=== PATIENT | male | born 1970 ===

== ENCOUNTER 2017-12-08 12:04 | Emergency (ER) | payer MEDICAID ==
[2017-12-08 12:05] VITALS: BMI 20.5
[2017-12-08 12:25] VITALS: PULSE 80
[2017-12-08] MEDS ORDERED: Lidocaine 1% Inj (20ml) IJ ONE (14:37)
[2017-12-08] MEDS ORDERED: Piperacillin/Tazobact 4.5 GM in Sodium Chloride 0.9% 100 ML IVPB STA (14:42)
[2017-12-08] MEDS ORDERED: Piperacillin/Tazobact 3.375 gm Inj IVPB ONE (14:51)
[2017-12-08] MEDS ORDERED: Lidocaine 2% Inj (20ml) ONE (14:52)
--- NOTE | 2017-12-08 14:55 | ED PDOC ---
HPI: Skin/Bite Injury Time Seen by Provider: 12/08/17 12:51 Chief Complaint (Nursing): Wound Check Chief Complaint (Provider): Abscess History Per: Patient History/Exam Limitations: no limitations Onset/Duration Of Symptoms: Days (x3 to 4) Current Symptoms Are (Timing): Still Present Location Of Injury: Left: Buttock (lower) Quality Of Symptoms: Painful, Swollen Additional Complaint(s): Dhaval Hoyt is a 47 year old male, with a past medical history of HIV with normal T-cell count on HAART, who presents to the emergency department with recommendation from PMD for evaluation of pain and swelling to left lower buttocks ongoing for x3 to 4 days. Patient states he squeezed it yesterday and expelled some of the fluid. Patient further states it does hurt to sit on that side. He denies any fever, chills or history of prior abscesses. No further medical complaints. PMD: Bjorn Fernandez Past Medical History Reviewed: Historical Data, Nursing Documentation Vital Signs: Last Vital Signs Temp 98.1 F 12/08/17 12:21 Pulse 80 12/08/17 12:21 Resp 19 12/08/17 12:21 BP 130/79 12/08/17 12:21 Pulse Ox 96 12/08/17 15:18 - Medical History PMH: HIV, Sexually Transmitted Disease (syphillis) - Surgical History Surgical History: No Surg Hx - Family History Family History: States: Unknown Family Hx - Social History Current smoker - smoking cessation education provided: No Alcohol: None Drugs: Denies - Immunization History Hx Tetanus Toxoid Vaccination: No Hx Influenza Vaccination: No Hx Pneumococcal Vaccination: No - Home Medications Home Medications: Ambulatory Orders Medication Instructions Recorded Elviteg/Juliane/Emtric/Tenofo Dis 1 tab PO DAILY 01/07/14 [Stribild] Ciprofloxacin HCl [Ciprofloxacin] 500 mg PO Q12 #14 tab 10/10/15 Dicyclomine [Bentyl] 20 mg PO Q6 PRN #12 tab 10/10/15 Famotidine [Pepcid] 40 mg PO DAILY #10 tab 10/10/15 Ondansetron [Zofran] 4 mg PO Q8H #8 tab 10/10/15 metroNIDAZOLE [Flagyl] 500 mg PO Q8 #30 tab 10/10/15 oxyCODONE/Acetaminophen [Percocet 1 ea PO Q6 PRN #10 tab 10/10/15 5/325 mg Tab] Clindamycin [Cleocin] 300 mg PO TID #21 cap 12/08/17 Ibuprofen [Motrin Tab] 600 mg PO Q6 PRN #15 tab 12/08/17 traMADol [Ultram] 50 mg PO TID PRN #12 tab 12/08/17 - Allergies Allergies/Adverse Reactions: Allergies Allergy/AdvReac Type Severity Reaction Status Date / Time No Known Allergies Allergy Verified 01/07/14 08:32 Review of Systems ROS Statement: Except As Marked, All Systems Reviewed And Found Negative Constitutional: Negative for: Fever, Chills Respiratory: Negative for: Cough Skin: Positive for: Other (left buttock pain). Negative for: Rash Physical Exam - Reviewed Nursing Documentation Reviewed: Yes Vital Signs Reviewed: Yes - Physical Exam Appears: Positive for: Non-toxic, No Acute Distress Head Exam: Positive for: ATRAUMATIC, NORMAL INSPECTION, NORMOCEPHALIC Skin: Positive for: Normal Color, Warm, Dry Eye Exam: Positive for: Normal appearance Neck: Positive for: Painless ROM Back: Positive for: Other (4cm area of tenderness and mild flunctuance to the left lower medial buttock. ) Extremity: Positive for: Normal ROM (upper and lower extremity). Negative for: Deformity, Swelling Neurologic/Psych: Positive for: Alert, Oriented. Negative for: Motor/Sensory Deficits (intact) - Laboratory Results Result Diagrams: 12/08/17 15:05 12/08/17 15:05 - ECG O2 Sat by Pulse Oximetry: 96 (RA) Pulse Ox Interpretation: Normal Medical Decision Making Medical Decision Making: Initial Impression: 47 y/o male w/ abscess and history of HIV Initial Plan: --BMP --CBC w/ differential --Lidocaine 1% 5 ml IJ --Zosyn 4.5 gm Sodium Chloride 0.9% 100 ml --Wound culture and gram stain --Reevaluation --Will plan for Incision & drainage, and dose of antibiotic IV 15:00 I&D Procedure: lidocaine and ethyl chloride used for comfort. Incision and drainage revealed moderate purulent bloody material. Wound packed and will return tomorrow for follow up. ~ Scribe Attestation: Documented by Nawaf Mckeon, acting as a scribe for Austen Currie MD. Provider Scribe Attestation: All medical record entries made by the Scribe were at my direction and personally dictated by me. I have reviewed the chart and agree that the record accurately reflects my personal performance of the history, physical exam, medical decision making, and the department course for this patient. I have also personally directed, reviewed, and agree with the discharge instructions and disposition. Disposition - Clinical Impression Clinical Impression: Abscess - Disposition Referrals: Bjorn Fernandez MD [Primary Care Provider] - Condition: STABLE Additional Instructions: Keep area clean and dry. Mild bleeding or discharge is expected tonight. Recommend sleeping on stomach, avoid sitting for prolonged periods. Take antibiotic as directed. Return to ER tomorrow for packing removal. Prescriptions: Clindamycin [Cleocin] 300 mg PO TID #21 cap Ibuprofen [Motrin Tab] 600 mg PO Q6 PRN #15 tab PRN Reason: Pain, Moderate (4-7) traMADol [Ultram] 50 mg PO TID PRN #12 tab PRN Reason: Pain, Moderate (4-7) Instructions: Skin Abscess, Abscess Incision and Drainage (DC) Forms: [employer] (British)
[2017-12-08 15:11] LABS: BASO # 0.1 K/uL (0.0-0.2); BASO % 1.2 % (0.0-2.0); EOS # 0.1 K/uL (0.0-0.7); HEMOGLOBIN 13.7 g/dL (12.0-18.0); LYMPH # 2.1 K/uL (1.0-4.3); LYMPH % 20.5 % (20.0-40.0); MEAN CORPUSCULAR HGB CONC 33.3 g/dL (33.0-37.0); MEAN PLATELET VOLUME 9.2 fl (7.2-11.7); MONO # 0.5 K/uL (0.0-0.8); MONO % 5.2 % (0.0-10.0); NEUT # 7.5 K/uL (1.8-7.0); NEUT % 72.1 % (50.0-75.0); RBC 4.15 Mil/uL (4.40-5.90); RED CELL DISTRIBUTION WIDTH 14.3 % (11.5-14.5); WHITE BLOOD COUNT 10.5 K/uL (4.8-10.8)
[2017-12-08 15:21] LABS: BLOOD UREA NITROGEN 13 mg/dl (9-20); CALCIUM 9.3 mg/dL (8.4-10.2); GFR AFRICAN-AMERICAN > 60; GFR NON-AFRICAN AMERICAN > 60
[2017-12-08 16:24] VITALS: BP 129/70; RESP 15; TEMP 98.2; O2SAT 98
== END 2017-12-08 16:27 | disposition home or self-care (01) ==
LOC: SUPCPDRO 12:04 → H.ER 12:04
DX: L02.31 Cutaneous abscess of buttock (principal); B95.61 Methicillin susceptible Staphylococcus aureus infection as the cause of diseases classified elsewhere; Z21 Asymptomatic human immunodeficiency virus [HIV] infection status
CPT/HCPCS: 10060; 80048; 85025; 87070; 87181; 96365; 99283; J2543

== ENCOUNTER 2017-12-09 15:56 | Emergency (ER) | payer MEDICAID ==
[2017-12-09 15:56] VITALS: BMI 20.5
[2017-12-09 16:09] VITALS: BP 142/83; PULSE 75; RESP 16; TEMP 98.5; O2SAT 97
--- NOTE | 2017-12-09 16:28 | ED PDOC ---
HPI: Wound Care - HPI Time Seen by Provider: 12/09/17 16:11 Chief Complaint (Nursing): Wound Check Chief Complaint (Provider): Wound Check History Per: Patient Exam Limitations: no limitations Additional Complaint(s): 47 year old male presents to the ED for wound check s/p incision and drainage performed yesterday of abscess to left medial buttocks. Patient states pain to affected area is much better than it was yesterday. He started taking all prescribed meds and denies any fever or chills in last 24 hrs. PMD: Bjorn Fernandez Past Medical History Reviewed: Historical Data, Nursing Documentation, Vital Signs Vital Signs: Last Vital Signs Temp 98.5 F 12/09/17 16:08 Pulse 75 12/09/17 16:08 Resp 16 12/09/17 16:08 BP 142/83 12/09/17 16:08 Pulse Ox 97 12/09/17 16:08 - Medical History PMH: HIV - Surgical History Surgical History: No Surg Hx - Family History Family History: States: Unknown Family Hx - Living Arrangements Living Arrangements: With Family - Social History Current smoker - smoking cessation education provided: No Alcohol: None Drugs: Denies - Home Medications Home Medications: Ambulatory Orders Medication Instructions Recorded Elviteg/Juliane/Emtric/Tenofo Dis 1 tab PO DAILY 01/07/14 [Stribild] Ciprofloxacin HCl [Ciprofloxacin] 500 mg PO Q12 #14 tab 10/10/15 Dicyclomine [Bentyl] 20 mg PO Q6 PRN #12 tab 10/10/15 Famotidine [Pepcid] 40 mg PO DAILY #10 tab 10/10/15 Ondansetron [Zofran] 4 mg PO Q8H #8 tab 10/10/15 metroNIDAZOLE [Flagyl] 500 mg PO Q8 #30 tab 10/10/15 oxyCODONE/Acetaminophen [Percocet 1 ea PO Q6 PRN #10 tab 10/10/15 5/325 mg Tab] Clindamycin [Cleocin] 300 mg PO TID #21 cap 12/08/17 Ibuprofen [Motrin Tab] 600 mg PO Q6 PRN #15 tab 12/08/17 traMADol [Ultram] 50 mg PO TID PRN #12 tab 12/08/17 Amoxicillin/Clavulanate [Augmentin 1 tab PO BID #14 tab 12/09/17 875 MG-125 MG] - Allergies Allergies/Adverse Reactions: Allergies Allergy/AdvReac Type Severity Reaction Status Date / Time No Known Allergies Allergy Verified 12/09/17 16:07 Review of Systems ROS Statement: Except As Marked, All Systems Reviewed And Found Negative Constitutional: Negative for: Fever Skin: Positive for: Other (abscess to left buttock) Physical Exam - Reviewed Nursing Documentation Reviewed: Yes Vital Signs Reviewed: Yes - Physical Exam Appears: Positive for: Well, Non-toxic, No Acute Distress Skin: Negative for: Rash Eye Exam: Positive for: Normal appearance Back: Positive for: Other (3 cm actively draining abcess to left posterior medial buttock with localized erythema and minimal tenderness. Mild induration noted, no erythematous streaking) Extremity: Positive for: Normal ROM Neurologic/Psych: Positive for: Alert, Oriented - ECG O2 Sat by Pulse Oximetry: 97 (RA) Pulse Ox Interpretation: Normal Medical Decision Making Medical Decision Makin47 year old here for packing removal of left buttocks abscess Packing came out as outer bandage was being removed. Area cleansed with saline and sterile gauze and tape applied. Patient was instructed to continue with cleocin and was also given rx augmentin. He has rx for motrin and ultram for pain control. Advised PMD follow up Tuesday or return any time if acutely worse. Scribe Attestation: Documented by Obey Hastings, acting as a scribe for Jamila Crump PA-C Provider Scribe Attestation: All medical record entries made by the Scribe were at my direction and personally dictated by me. I have reviewed the chart and agree that the record accurately reflects my personal performance of the history, physical exam, medical decision making, and the department course for this patient. I have also personally directed, reviewed, and agree with the discharge instructions and disposition. Disposition - Clinical Impression Clinical Impression: Encounter for wound re-check, Abscess - Patient ED Disposition Is Patient to be Admitted: No Counseled Patient/Family Regarding: Need For Followup, Rx Given - Disposition Referrals: Bjorn Fernandez MD [Staff Provider] - Disposition: Routine/Home Disposition Time: 16:33 Condition: STABLE Additional Instructions: APPLY WARM COMPRESSES WITH EPSOM SALTS SOLUTION (AVAILABLE OVER THE COUNTER) OFTEN POSSIBLE. TAKE NEW RX MEDS DIRECTED ALONG WITH CURRENT MEDS THAT YOU ARE TAKING. FOLLOW UP TUESDAY WITH PRIMARY CARE DOCTOR OR RETURN ANY TIME IF ACUTELY WORSE. Prescriptions: Amoxicillin/Clavulanate [Augmentin 875 MG-125 MG] 1 tab PO BID #14 tab Instructions: Skin Abscess Forms: [facility] ([place]ian)
== END 2017-12-09 17:00 | disposition home or self-care (01) ==
LOC: H.ER 15:56
DX: Z48.00 Encounter for change or removal of nonsurgical wound dressing (principal)